=== PATIENT | female | born 1970 | race African-American/Black ===

== ENCOUNTER 2017-11-24 10:32 | Outpatient (CLI) | payer OTHER | END 2017-11-24 10:33 | disposition home or self-care (01) | LOC: BICMAMMO 10:32 | PROVIDERS: ATTEND Internal Medicine | DX: Z12.31 Encounter for screening mammogram for malignant neoplasm of breast (principal) | CPT/HCPCS: 77063; 77067 ==

== ENCOUNTER 2018-01-26 08:30 | Inpatient (IN) | payer OTHER ==
--- NOTE | 2018-02-02 10:49 | HP ---
HISTORY OF PRESENT ILLNESS: The patient is a 47-year-old female with a several year history of progr essive problems with her right hip without injury. She has had progressive pain despite rest, restri ction of activities, use of a variety of anti-inflammatory medications, weight loss and lifestyle adj ustments. She is having pain with day-to-day activities including walking, getting dressed and sleep ing. It is also interfering with attending to work. PAST MEDICAL HISTORY: The patient has history of hypertension, back pain and previous hysterectomy. She had possible wrote rectal bleeding for meloxicam. CURRENT MEDICATIONS: Include atenolol and tramadol. ALLERGIES: LISINOPRIL. FAMILY HISTORY/SOCIAL HISTORY/REVIEW OF SYSTEMS: Otherwise unremarkable. PHYSICAL EXAMINATION: GENERAL: Reveals a healthy heavyset female. HEENT: Unremarkable. NECK: Supple. CHEST: Clear. HEART: Regular rate and rhythm. ABDOMEN: Soft, nontender. PELVIC/RECTAL/BREAST: Exams are deferred. EXTREMITIES: Pertinent findings to the right hip. The right leg is 1 cm short. There is tenderness of the anterior hip. There is a right antalgic gait. There is decreased range of motion of the rig ht hip and groin pain with internal rotation of the hip. Neurovascular exam is intact. There are pa lpable distal pulses. X-RAY FINDINGS: X-rays of the right hip reveal severe DJD with no joint space remaining with progres alexsander from previous x-rays. IMPRESSION: 1. Degenerative arthritis, right hip. 2. History of hypertension. PLAN: Right total hip replacement. The nature of the surgery, length of recovery, and potential com plications such as infection, loss of motion, incomplete relief, neurovascular injury, thromboembolic phenomenon, leg length discrepancy, possible transfusion, and need for revision have been discussed in detail.
[2018-02-06] MEDS ORDERED: Sodium Chloride 0.9% 100 ML ONE (08:27)
[2018-02-06] MEDS ORDERED: CEFAZOLIN/Water 2 GM/20 ML SYRINGE ONE (08:27)
[2018-02-06] MEDS ORDERED: Vancomycin HCl 1.5 GM in Sodium Chloride 0.9% 250 ML 300 ML IVPB SCH ×2 (08:45→22:00)
[2018-02-06] MEDS ORDERED: Midazolam HCl 2 mg/2 ml Vial ONE ×2 (09:27→11:28)
[2018-02-06] MEDS ORDERED: Fentanyl 100 MCG/2 ML VIAL ONE ×3 (09:28→13:19)
[2018-02-06] MEDS ORDERED: diphenhydrAMINE 50 MG/ML VIAL IVP PRN (10:15)
[2018-02-06] MEDS ORDERED: Naloxone HCl 0.4 mg/ml Vial IV PRN (10:15)
[2018-02-06] MEDS ORDERED: Promethazine HCl 25 MG/ML VIAL IM PRN ×2 (10:15→13:59)
[2018-02-06] MEDS ORDERED: Bupivacaine 0.25% 10 ML VIAL EPIDURAL PRN (10:15)
[2018-02-06] MEDS ORDERED: Ondansetron HCl/PF 4 MG/2 ML Vial IVP PRN ×3 (10:15→15:43)
[2018-02-06] MEDS ORDERED: Zolpidem Tartrate 5 MG TAB PO PRN ×2 (10:15→15:43)
[2018-02-06] MEDS ORDERED: traMADol HCl 50 MG TAB PO PRN ×2 (10:15→15:43)
[2018-02-06] MEDS ORDERED: diphenhydrAMINE 50 MG/ML VIAL IM PRN (10:15)
[2018-02-06] MEDS ORDERED: fentaNYL Citrate/PF 1,250 MCG, Bupivacaine 25 ML in Sodium Chloride 0.9% 250 ML 200 ML EPIDURAL SCH (10:15)
[2018-02-06] MEDS ORDERED: Hydrocerin (Eucerin) Cream 120 gm Jar TOP PRN (10:15)
[2018-02-06] MEDS ORDERED: Naloxone HCl 0.4 mg/ml Vial IVP PRN (10:15)
[2018-02-06] MEDS ORDERED: Lidocaine 1% PF 5 ML VIAL ONE (10:43)
[2018-02-06] MEDS ORDERED: Ondansetron HCl/PF 4 MG/2 ML Vial ONE (10:43)
[2018-02-06] MEDS ORDERED: PROPOFOL 200 MG/20 ML VIAL ONE (10:43)
[2018-02-06] MEDS ORDERED: Succinylcholine Chloride 20 MG/ML 10 ml SYRINGE FS ONE (10:43)
[2018-02-06] MEDS ORDERED: PHENYLEPHRINE-NS 100 MCG/ML 10 ML SYRINGE ONE (10:43)
[2018-02-06] MEDS ORDERED: Tranexamic Acid 1,000 MG in Sodium Chloride 0.9% 100 ML IVPB SCH ×2 (13:45→15:43)
[2018-02-06] MEDS ORDERED: Promethazine HCl 25 MG/ML VIAL SLOW IVP PRN ×2 (13:59→15:43)
--- NOTE | 2018-02-06 14:17 | OP ---
DATE OF SURGERY: 02/06/2018 SURGEON: Víctor Clark M.D. AIR VALVE MECHANIC: Noelle Riojas PA-C ANESTHESIA: General plus epidural. PREOPERATIVE DIAGNOSIS: Degenerative arthritis, right hip. POSTOPERATIVE DIAGNOSIS: Degenerative arthritis, right hip. PROCEDURES PERFORMED: Right total hip replacement with uncemented [place] Trident 52 mm acetabular c omponent with 36 mm X3 polyethylene insert and uncemented [place] Accolade femoral stem size #2, 132 degree neck angle with a +5 mm Delta ceramic 36 mm femoral head. DESCRIPTION OF PROCEDURE: After satisfactory anesthesia was induced in supine position, sequential c ompression device was placed on the non-operative leg. The patient was then placed in lateral decubi tus position this position held with the hip position device. The patient's right hip was then prepp ed and draped in routine sterile fashion. The hip was approached through a lateral curvilinear incis ion centered over the greater trochanter and carried down to subcutaneous tissues. Bleeding points c ontrolled with Bovie cautery. IT band and gluteal fascia were split in line with the skin incision. Direct lateral approach to the hip joint was accomplished by dividing the anterior third of the glut eus medius minimus tendons with Bovie cautery and reflecting this as a single flap anteriorly and med ially along with the vastus lateralis. Anterior capsulectomy was performed. Hip dislocated anterior ly. There was marked degenerative arthritis of the hip with large of exposed bare bone. The femoral neck was osteotomized with an oscillating saw using a trial prosthesis as a guide. Acetabulum was e xposed and cleaned of all soft tissue and debris and then reamed in sequential manner with power ream ers down to bleeding subchondral bone. It was reamed to a total of 52 mm. It was felt that a 52 mm Trident outer shell could be placed in a press fit fashion. The permanent outer shell was hammered i n position. There was good fit and stability of the outer shell and the permanent X3 polyethylene li ner was then snapped into position. The proximal femur was exposed and opened with a box osteotome a nd then rasped in sequence to accept a #2 Accolade femoral rasp. Trial reduction with 132 degree nec k angle and the +5 mm neck length, 36 mm head gave appropriate size, fit, and stability. Hip was aga in dislocated, the trial components removed. The permanent femoral component was then hammered in po sition and the permanent +5 of millimeters neck length 36 mm ceramic head was then placed on the trun nion. The components appear to be stable. The hip was again reduced and found to be stable. The hi p was copiously irrigated with pulsatile lavage. The abductors were repaired with interrupted 2-0 Vi cryl. IT band closure of the gluteal fascia were closed with interrupted 2-0 Vicryl and a running #2 Quill. Subcutaneous tissues were closed with interrupted #2-0 Vicryl, and a running 0 Quill suture and the skin closed with running subcuticular 3-0 Monoderm and SurgiSeal skin adhesive. Sterile dres sing was applied. The patient turned to supine position and a sequential compression device applied to her operated leg. She was then awakened and taken to recovery room in stable condition. There we re no apparent intraoperative complications. The estimated blood loss was 350 mL.
--- NOTE | 2018-02-06 14:43 | RAD ---
RIGHT HIP 2 VIEWS: HISTORY: Arthritis. Hip replacement. FINDINGS: Total hip prosthesis is in place. No perihardware lucency. Soft tissue gas. IMPRESSION: Right hip prosthesis is good radiographic position. POS: OFF
[2018-02-06] MEDS ORDERED: diphenhydrAMINE 25 MG CAP PO PRN (15:43)
[2018-02-06] MEDS ORDERED: Fentanyl 100 MCG/2 ML VIAL SLOW IVP PRN ×2 (15:43)
[2018-02-06] MEDS ORDERED: HYDROcodone/Acetaminophen 10/325 mg Tablet PO PRN ×2 (15:43)
[2018-02-06] MEDS ORDERED: Acetaminophen 325 MG TAB PO PRN (15:43)
[2018-02-06] MEDS ORDERED: Ketorolac Tromethamine 30 MG/ML VIAL IVP SCH (16:00)
[2018-02-06] MEDS: Ketorolac Tromethamine 30 MG/ML VIAL IVP SCH ×4 (16:10→22:55)
[2018-02-06] MEDS: diphenhydrAMINE 25 MG CAP PO PRN ×2 (16:20→21:56)
[2018-02-06] MEDS: Sodium Chloride 0.9% 1,000 ML IV SCH ×2 (16:53→22:55)
[2018-02-06] MEDS: HYDROcodone/Acetaminophen 5/325 mg Tablet PO PRN (17:10)
[2018-02-06] MEDS: Aspirin 81 mg Enteric Coated Tablet PO SCH (21:07)
[2018-02-06] MEDS: Ferrous Gluconate 324 MG TAB PO SCH (21:07)
[2018-02-06] MEDS: CEFAZOLIN/Water 2 GM/20 ML SYRINGE SLOW IVP SCH (21:55)
[2018-02-07] MEDS: HYDROcodone/Acetaminophen 5/325 mg Tablet PO PRN ×5 (03:35→21:22)
[2018-02-07 04:37] LABS: Hemoglobin 11.2 g/dL (12.0-16.0); Mean Corpuscular HGB CONC 33.3 g/dL (32.0-36.0); Mean Corpuscular Volume 87.1 fl (81.0-99.0); Mean Platelet Volume 7.7 fL (7.4-10.4); Platelet Count 206 thou/uL (130-400); RBC Distribution Width 11.5 % (11.5-14.5); Red Blood Cell (RBC) Count 3.86 mill/uL (4.20-5.40); White Blood Cell (WBC) Count 5.1 thou/uL (4.8-10.8)
[2018-02-07] MEDS: CEFAZOLIN/Water 2 GM/20 ML SYRINGE SLOW IVP SCH (04:55)
[2018-02-07] MEDS: Ketorolac Tromethamine 30 MG/ML VIAL IVP SCH ×3 (04:55→18:08)
[2018-02-07] MEDS: Multivitamin W/ Minerals 1 TAB PO SCH (08:16)
[2018-02-07] MEDS: Ferrous Gluconate 324 MG TAB PO SCH ×2 (08:16→21:22)
[2018-02-07] MEDS: Senokot S 8.6-50 MG TAB PO SCH ×2 (08:17→21:22)
[2018-02-07] MEDS: Aspirin 81 mg Enteric Coated Tablet PO SCH ×2 (08:17→21:22)
[2018-02-07] MEDS: Atenolol 25 MG TAB PO SCH (08:18)
[2018-02-07] MEDS ORDERED: PHENTERMINE HCL 15 MG PO SCH (09:00)
[2018-02-07 11:12] VITALS: BMI 38.2
[2018-02-07] MEDS: Sodium Chloride 0.9% 1,000 ML IV SCH ×2 (11:29→23:32)
--- NOTE | 2018-02-07 13:11 | PRG ---
DATE OF SERVICE: 02/07/2018 SUBJECTIVE: Trina is a 47-year-old female who is postop day #1 of right press fit total hip arthropl asty. She did relatively well. She has complaints of discomfort in the right hip as expected. OBJECTIVE: VITAL SIGNS: Temperature 98.2, pulse 90-100, blood pressure 94/57, respiratory rate 18, O2 saturatio n on room air is 98%. GENERAL: She is alert and oriented to person, place, time, and situation. Grossly nonfocal. MUSCULOSKELETAL: Neurovascularly intact both lower extremities. LABORATORY DATA: Hemoglobin and hematocrit 11.2 and 33.6. ASSESSMENT: 1. A 47-year-old female postop day #1 right total hip arthroplasty. 2. Mild postoperative hemorrhagic anemia. PLAN: Continue current management, discharge probably tomorrow.
[2018-02-08] MEDS: Ketorolac Tromethamine 30 MG/ML VIAL IVP SCH ×2 (00:10→05:04)
[2018-02-08] MEDS: Sodium Chloride 0.9% 1,000 ML IV SCH ×2 (06:51→16:30)
[2018-02-08] MEDS: HYDROcodone/Acetaminophen 5/325 mg Tablet PO PRN ×2 (07:26→11:20)
[2018-02-08] MEDS: Senokot S 8.6-50 MG TAB PO SCH ×2 (07:26→21:17)
[2018-02-08] MEDS: Multivitamin W/ Minerals 1 TAB PO SCH (07:27)
[2018-02-08] MEDS: Ferrous Gluconate 324 MG TAB PO SCH ×2 (07:27→21:17)
[2018-02-08] MEDS: Aspirin 81 mg Enteric Coated Tablet PO SCH ×2 (07:27→21:17)
[2018-02-08] MEDS: Atenolol 25 MG TAB PO SCH (07:29)
[2018-02-08] MEDS: traMADol HCl 50 MG TAB PO PRN ×2 (09:49→18:08)
[2018-02-08] MEDS ORDERED: HYDROcodone/Acetaminophen 10/325 mg Tablet PO PRN (14:46)
[2018-02-08] MEDS: HYDROcodone/Acetaminophen 10/325 mg Tablet PO PRN ×2 (15:26→21:18)
[2018-02-09] MEDS: Sodium Chloride 0.9% 1,000 ML IV SCH (01:13)
[2018-02-09] MEDS: HYDROcodone/Acetaminophen 10/325 mg Tablet PO PRN ×3 (01:18→11:35)
[2018-02-09] MEDS: Aspirin 81 mg Enteric Coated Tablet PO SCH (08:03)
[2018-02-09] MEDS: Ferrous Gluconate 324 MG TAB PO SCH (08:03)
[2018-02-09] MEDS: Multivitamin W/ Minerals 1 TAB PO SCH (08:04)
[2018-02-09] MEDS: Senokot S 8.6-50 MG TAB PO SCH (08:04)
[2018-02-09] MEDS: Atenolol 25 MG TAB PO SCH (08:05)
[2018-02-09 11:18] VITALS: BP 117/75; TEMP 98.6
== END 2018-02-09 12:51 | disposition home or self-care (01) | DRG 470 ==
LOC: SURG A 02-06 07:43 → SJJU 02-06 14:50
PROVIDERS: ADMIT Orthopaedic Surgery; ATTEND Orthopaedic Surgery
PROC: 0SR904Z Replacement of Right Hip Joint with Ceramic on Polyethylene Synthetic Substitute, Open Approach (ICD-10-PCS; principal; 2018-02-06)
DX: M16.11 Unilateral primary osteoarthritis, right hip (principal); D62 Acute posthemorrhagic anemia; I10 Essential (primary) hypertension; Z90.710 Acquired absence of both cervix and uterus; Z88.8 Allergy status to other drugs, medicaments and biological substances; Z79.899 Other long term (current) drug therapy
CPT/HCPCS: 36415; 85027; G8978-GP-CM; G8979-GP-CJ; G8987-GO-CJ; G8988-GO-CI; J1885; J2001; J2250; J2405; J2704; J3010; J3370; J3490; J7050

== ENCOUNTER 2018-01-26 08:39 | Outpatient (CLI) | payer OTHER ==
[2018-01-26 09:54] LABS: Bilirubin Negative (Negative); Blood, Urine Negative (Negative); Clarity CLEAR (Clear); Glucose, Urine (Dipstick) Negative (Negative); Leukocyte Negative (Negative); Nitrite Negative (Negative); Protein, Urine (Dipstick) Negative (Neg-Trace); Specific Gravity, Urine 1.012 (1.002-1.036); Urobilinogen 0.2 mg/dL (0.2-1.0); pH, Urine 7.5 (5.0-9.0)
[2018-01-26 09:56] LABS: Bacteria/HPF Rare-Few HPF (None Seen); Hyaline Casts/LPF 0-3 HYALINE CAST LPF (0-3 Hyaline); Pathc Cast-AUWi Flag 0.14 (0-2.49); RBC/HPF 0-3 HPF (0-3); Squamous Epithelial 0-3 HPF (0-3); WBC/HPF 0-3 HPF (0-3)
== END 2018-01-26 08:40 | disposition home or self-care (01) ==
LOC: LABBT 08:39
PROVIDERS: ATTEND Orthopaedic Surgery
DX: Z01.818 Encounter for other preprocedural examination (principal); M16.11 Unilateral primary osteoarthritis, right hip
CPT/HCPCS: 81001; 87081; 93005; 93010

== ENCOUNTER 2018-02-02 11:12 | Outpatient (CLI) | payer OTHER ==
[2018-02-02 11:40] LABS: #Eosinphils 0.1 thou/uL (0.0-0.7); #Lymphocytes 1.3 thou/uL (1.20-3.40); #Monocytes 0.3 thou/uL (0.11-0.59); #Neutrophils 1.6 thou/uL (1.40-6.50); %Basophils 1.1 % (0.0-1.0); %Eosinophils 3.1 % (0.0-10.0); %Lymphocytes 40.4 % (21.0-51.0); %Monocytes 8.6 % (0.0-10.0); %Neutrophils 46.8 % (42.0-75.0); Hemoglobin 14.1 g/dL (12.0-16.0); Mean Corpuscular HGB CONC 34.5 g/dL (32.0-36.0); Mean Corpuscular Hemoglobin 29.7 pg (27.0-31.0); Mean Platelet Volume 7.3 fL (7.4-10.4); Platelet Count 259 thou/uL (130-400); RBC Distribution Width 11.4 % (11.5-14.5); Red Blood Cell (RBC) Count 4.76 mill/uL (4.20-5.40); White Blood Cell (WBC) Count 3.3 thou/uL (4.8-10.8)
[2018-02-02 11:45] LABS: INR-International Normal Ratio 0.9; Prothrombin Time 12.1 SEC (12.0-14.7)
[2018-02-02 12:20] LABS: Anion Gap 11 mmol/L (10-20); BUN (Urea Nitrogen) 10 mg/dL (7.0-18.7); Calc. Creatinine Clearance 0 mL/min (70-130); Calcium 9.6 mg/dL (7.8-10.44); Carbon Dioxide 29 mmol/L (22-29); Chloride 105 mmol/L (98-107); Estimated GFR-MDRD Greater than 90; Glucose 100 mg/dL (70-105); Potassium 4.1 mmol/L (3.5-5.1); Sodium 141 mmol/L (136-145)
== END 2018-02-02 11:13 | disposition home or self-care (01) ==
LOC: LABBT 11:12
PROVIDERS: ATTEND Orthopaedic Surgery
DX: Z01.818 Encounter for other preprocedural examination (principal); M16.11 Unilateral primary osteoarthritis, right hip
CPT/HCPCS: 80048; 85025; 85610; 86850; 86900; 86901

== ENCOUNTER 2018-11-27 08:19 | Outpatient (CLI) | payer OTHER ==
--- NOTE | 2018-11-27 09:31 | MMO ---
Bilateral MAMMO Bilat Screen [facility]. CLINICAL HISTORY: Patient is 48 years old and is seen for screening. The patient has no family history of breast cancer. The patient has no personal history of cancer. VIEWS: The views performed were: bilateral craniocaudal with tomosynthesis and bilateral mediolateral oblique with tomosynthesis. FILMS COMPARED: The present examination has been compared to prior imaging studies performed at [facility] on 11/24/2017, and at [facility] on 11/09/2013, 10/23/2014, 11/03/2015 and 11/03/2016. MAMMOGRAM FINDINGS: There are stable benign appearing calcifications seen in both breasts. There are no suspicious masses, suspicious calcifications, or new areas of architectural distortion. IMPRESSION: THERE IS NO MAMMOGRAPHIC EVIDENCE OF MALIGNANCY. A ROUTINE FOLLOW-UP MAMMOGRAM IN 1 YEAR IS RECOMMENDED. THE RESULTS OF THIS EXAM WERE SENT TO THE PATIENT. ACR BI-RADS Category 2 - Benign finding MAMMOGRAPHY NOTE: 1. A negative mammogram report should not delay a biopsy if a dominant of clinically suspicious mass is present. 2. Approximately 10% to 15% of breast cancers are not detected by mammography. 3. Adenosis and dense breasts may obscure an underlying neoplasm.
== END 2018-11-27 08:20 | disposition home or self-care (01) ==
LOC: BICMAMMO 08:19
PROVIDERS: ATTEND Internal Medicine
DX: Z12.31 Encounter for screening mammogram for malignant neoplasm of breast (principal)
CPT/HCPCS: 77063; 77067

== ENCOUNTER 2019-01-31 15:25 | Outpatient (CLI) | payer OTHER ==
--- NOTE | 2019-01-31 16:00 | RAD ---
EXAM: CHEST TWO VIEWS: 01/31/19 HISTORY: Shortness of breath. COMPARISON: 10/14/11. FINDINGS: Heart size is normal. The lungs are clear. No pneumonia, edema, pleural effusions or other acute proc ess. IMPRESSION: No acute intrathoracic disease. Stable from prior study. POS: [facility]
== END 2019-01-31 15:26 | disposition home or self-care (01) ==
LOC: BICRAD 15:25
PROVIDERS: ATTEND Internal Medicine
DX: R06.02 Shortness of breath (principal)
CPT/HCPCS: 71046; 82306; 85025

== ENCOUNTER 2019-03-20 05:46 | Day surgery (SDC) | payer OTHER ==
[2019-03-13 13:10] VITALS: BMI 41.6
[2019-03-20] MEDS ORDERED: Lidocaine 1% (PF) 30 ML VIAL ONE (07:00)
[2019-03-20] MEDS ORDERED: Nitroglycerin 100MG/250ML BOT 250 ML ONE (07:00)
[2019-03-20] MEDS ORDERED: Verapamil 5 MG/2 ML VIAL ONE (07:00)
[2019-03-20] MEDS ORDERED: Heparin 10,000 UNITS/1 ML VIAL ONE (07:00)
[2019-03-20 07:12] LABS: Cardiac Risk 3.6 (Less than 4.5)
[2019-03-20] MEDS ORDERED: Midazolam HCl 2 mg/2 ml Vial ONE (07:26)
[2019-03-20] MEDS ORDERED: Fentanyl 100 MCG/2 ML VIAL ONE (07:27)
[2019-03-20] MEDS ORDERED: Iopamidol 370 76% 100 ML VIAL ONE (09:28)
== END 2019-03-20 11:03 | disposition home or self-care (01) ==
LOC: CCL 05:46
PROVIDERS: ATTEND Internal Medicine Cardiovascular Disease
PROC: 4A023N7 Measurement of Cardiac Sampling and Pressure, Left Heart, Percutaneous Approach (ICD-10-PCS; principal; 2019-03-20)
PROC: B2111ZZ Fluoroscopy of Multiple Coronary Arteries using Low Osmolar Contrast (ICD-10-PCS; principal; 2019-03-20)
DX: R07.89 Other chest pain (principal); R06.00 Dyspnea, unspecified; I10 Essential (primary) hypertension; M19.90 Unspecified osteoarthritis, unspecified site; E66.9 Obesity, unspecified; Z68.41 Body mass index [BMI] 40.0-44.9, adult; Z88.8 Allergy status to other drugs, medicaments and biological substances; Z79.899 Other long term (current) drug therapy
CPT/HCPCS: 36415; 80061; 93458; 99152; C1769; J1644; J2001; J2250; J3010; Q9967

== ENCOUNTER 2019-06-07 14:07 | Outpatient (CLI) | payer OTHER ==
--- NOTE | 2019-06-07 14:55 | CT ---
EXAM: CTA of the chest HISTORY: Chest pain and shortness of breath COMPARISON: None TECHNIQUE: Multiple contiguous axial images were obtained a CTA of the chest with contrast per pulmon marco embolism protocol. 3-D oblique MIP reformats and direct coronal reformats were performed. FINDINGS: HEART: Normal in size without focal cardiac abnormality. PULMONARY ARTERIES: Normal in caliber without filling defects to suggest pulmonary emboli. MEDIASTINUM: No hilar or mediastinal lymphadenopathy. LUNGS: No focal infiltrates or masses. PLEURAL SPACE: No pleural effusion or pneumothorax. CHEST WALL SOFT TISSUES: Unremarkable VISUALIZED OSSEOUS STRUCTURES: Unremarkable VISUALIZED SUBDIAPHRAGMATIC STRUCTURES: Unremarkable IMPRESSION: No evidence of pulmonary thromboembolism
== END 2019-06-07 14:08 | disposition home or self-care (01) ==
LOC: CT 14:07
PROVIDERS: ATTEND Internal Medicine
DX: R07.89 Other chest pain (principal)
CPT/HCPCS: 36415; 71275; 85379

== ENCOUNTER 2020-02-07 07:48 | Outpatient (CLI) | payer OTHER ==
--- NOTE | 2020-02-07 08:40 | MMO ---
Bilateral MAMMO Bilat Screen [facility]. CLINICAL HISTORY: Patient is 49 years old and is seen for screening. The patient has no family history of breast cancer. The patient has no personal history of cancer. VIEWS: The views performed were: bilateral craniocaudal with tomosynthesis and bilateral mediolateral oblique with tomosynthesis. FILMS COMPARED: The present examination has been compared to prior imaging studies performed at [facility] on 11/24/2017 and 11/27/2018, and at [facility] on 11/03/2015 and 11/03/2016. This study has been interpreted with the assistance of computer-aided detection. MAMMOGRAM FINDINGS: There are stable benign appearing calcifications seen in both breasts. There are no suspicious masses, suspicious calcifications, or new areas of architectural distortion. IMPRESSION: THERE IS NO MAMMOGRAPHIC EVIDENCE OF MALIGNANCY. A ROUTINE FOLLOW-UP MAMMOGRAM IN 1 YEAR IS RECOMMENDED. THE RESULTS OF THIS EXAM WERE SENT TO THE PATIENT. ACR BI-RADS Category 2 - Benign finding MAMMOGRAPHY NOTE: 1. A negative mammogram report should not delay a biopsy if a dominant of clinically suspicious mass is present. 2. Approximately 10% to 15% of breast cancers are not detected by mammography. 3. Adenosis and dense breasts may obscure an underlying neoplasm. Reported by: ANTIONETTE CARRILLO MD Electonically Signed: [id number]
== END 2020-02-07 07:49 | disposition home or self-care (01) ==
LOC: BICMAMMO 07:48
PROVIDERS: ATTEND Internal Medicine
DX: Z12.31 Encounter for screening mammogram for malignant neoplasm of breast (principal)
CPT/HCPCS: 77063; 77067

== ENCOUNTER 2021-02-10 08:59 | Outpatient (CLI) | payer OTHER | END 2021-02-10 09:00 | disposition home or self-care (01) | LOC: BICMAMMO 08:59 | PROVIDERS: ATTEND Internal Medicine | DX: Z12.31 Encounter for screening mammogram for malignant neoplasm of breast (principal) | CPT/HCPCS: 77063; 77067 ==

== ENCOUNTER 2021-07-29 09:39 | Outpatient (CLI) | payer OTHER | END 2021-07-29 09:40 | disposition home or self-care (01) | LOC: BICRAD 09:39 | PROVIDERS: ATTEND Internal Medicine | DX: R07.9 Chest pain, unspecified (principal) | CPT/HCPCS: 71046 ==

== ENCOUNTER 2022-02-15 08:56 | Outpatient (CLI) | payer BC | END 2022-02-15 08:57 | disposition home or self-care (01) | LOC: BICMAMMO 08:56 | PROVIDERS: ATTEND Internal Medicine | DX: Z12.31 Encounter for screening mammogram for malignant neoplasm of breast (principal) | CPT/HCPCS: 77063; 77067 ==

== ENCOUNTER 2022-12-14 11:05 | Outpatient (CLI) | payer BC | END 2022-12-14 11:06 | disposition home or self-care (01) | LOC: RAD 11:05 | PROVIDERS: ATTEND Internal Medicine | DX: M54.50 Low back pain, unspecified (principal); M25.551 Pain in right hip; M47.816 Spondylosis without myelopathy or radiculopathy, lumbar region; Z98.890 Other specified postprocedural states | CPT/HCPCS: 72100 ==

== ENCOUNTER 2023-07-04 15:10 | Outpatient (CLI) | payer BC | END 2023-07-04 15:11 | disposition home or self-care (01) | LOC: RAD 15:10 | PROVIDERS: ATTEND Internal Medicine | DX: M25.552 Pain in left hip (principal); M16.12 Unilateral primary osteoarthritis, left hip ==

== ENCOUNTER 2023-12-27 07:04 | Observation (INO) | payer BC ==
[2023-12-22 12:05] VITALS: BMI 41.5
[2023-12-27] MEDS ORDERED: Sodium Chloride 0.9% 100 ML ONE ×2 (07:45→09:27)
[2023-12-27] MEDS ORDERED: Tranexamic Acid 1,000 MG/10 ML VIAL ONE (07:45)
[2023-12-27] MEDS ORDERED: Midazolam HCl 2 mg/2 ml Vial ONE (08:21)
[2023-12-27] MEDS ORDERED: fentaNYL 50 mcg/mL 1 mL Vial ONE ×3 (08:21→13:58)
[2023-12-27] MEDS ORDERED: Lidocaine 1.5% w/Epi 1:200K 30 ML VIAL (Epid Use) ONE (08:40)
[2023-12-27] MEDS ORDERED: Vancomycin (BATCH) 1.5 GM/300 ML BAG ONE (09:05)
[2023-12-27] MEDS ORDERED: Promethazine HCl 25 MG SUPP PR PRN (09:15)
[2023-12-27] MEDS ORDERED: Naloxone HCl 0.4 mg/ml Vial IV PRN (09:15)
[2023-12-27] MEDS ORDERED: diphenhydrAMINE 50 MG/ML VIAL IVP PRN (09:15)
[2023-12-27] MEDS ORDERED: diphenhydrAMINE 25 MG CAP PO PRN ×2 (09:15→11:58)
[2023-12-27] MEDS ORDERED: Naloxone HCl 0.4 mg/ml Vial IVP PRN (09:15)
[2023-12-27] MEDS ORDERED: Bupivacaine 0.25% 10 ML VIAL EPIDURAL PRN (09:15)
[2023-12-27] MEDS ORDERED: Ondansetron PF 4 MG/2 ML Vial IVP PRN (09:15)
[2023-12-27] MEDS ORDERED: Promethazine HCl 25 MG/ML VIAL IM PRN (09:15)
[2023-12-27] MEDS ORDERED: Moisturizing Cream (Eucerin) 113 GM JAR TOP PRN (09:15)
[2023-12-27] MEDS ORDERED: traMADol HCl 50 MG TAB PO PRN ×2 (09:15)
[2023-12-27] MEDS ORDERED: HYDROcodone/Acetaminophen 5/325 mg Tablet PO PRN (09:15)
[2023-12-27] MEDS ORDERED: Zolpidem Tartrate 5 MG TAB PO PRN ×2 (09:15→11:58)
[2023-12-27] MEDS ORDERED: diphenhydrAMINE 50 MG/ML VIAL IM PRN (09:15)
[2023-12-27] MEDS ORDERED: CEFAZOLIN 2 GM VIAL ONE (09:27)
[2023-12-27] MEDS ORDERED: Ondansetron PF 4 MG/2 ML Vial ONE (09:32)
[2023-12-27] MEDS ORDERED: Rocuronium Bromide 10 MG/ML (10ML VIAL) ONE (09:32)
[2023-12-27] MEDS ORDERED: fentaNYL PF 100 MCG/2 ML SYRINGE ONE ×2 (09:32→11:45)
[2023-12-27] MEDS ORDERED: PROPOFOL 20 ML ONE (09:32)
[2023-12-27] MEDS ORDERED: Lidocaine 1% PF 5 ML VIAL ONE (09:32)
[2023-12-27] MEDS ORDERED: Dexamethasone 20 MG/5 ML VIAL ONE (09:32)
[2023-12-27] MEDS ORDERED: ePHEDrine Sulfate 50 MG/10 ML VIAL ONE (10:24)
[2023-12-27] MEDS ORDERED: SUGAMMADEX SODIUM 200 MG/2 ML VIAL ONE (11:42)
[2023-12-27] MEDS ORDERED: Acetaminophen 325 MG TAB PO PRN (11:58)
[2023-12-27] MEDS: Ketorolac Tromethamine 30 MG (1 mL) VIAL IVP SCH (14:51)
[2023-12-27] MEDS: HYDROcodone/Acetaminophen 5/325 mg Tablet PO PRN (15:02)
[2023-12-27] MEDS: CEFAZOLIN 2 GM in Sodium Chloride 0.9% 100 ML IVPB SCH (17:26)
[2023-12-27] MEDS: Ferrous Gluconate 324 MG TAB PO SCH (21:17)
[2023-12-27] MEDS: Senokot S 8.6-50 MG TAB PO SCH (21:18)
[2023-12-27] MEDS: Atorvastatin Calcium 10 MG TAB PO SCH (21:18)
[2023-12-27] MEDS: Aspirin 81 mg Enteric Coated Tablet PO SCH (21:18)
[2023-12-27] MEDS: Sodium Chloride 0.9% 1,000 ML IV SCH (21:28)
[2023-12-28] MEDS: FENTANYL 500 MCG/10 ML VIAL 500 MCG, Bupivacaine 0.75% 10 ML in Sodium Chloride 0.9% 80 ML EPIDURAL SCH (05:20)
[2023-12-28 06:23] LABS: Hematocrit 33.9 % (36.0-47.0); Hemoglobin 11.3 g/dL (12.0-16.0); Mean Corpuscular HGB CONC 33.3 g/dL (32.0-36.0); Mean Corpuscular Volume 87.1 fL (78.0-98.0); Mean Platelet Volume 9.7 fL (7.4-10.4); Platelet Count 237 10x3/uL (130-400); RBC Distribution Width 12.7 % (11.5-14.5); Red Blood Cell (RBC) Count 3.89 mill/uL (4.20-5.40)
[2023-12-28] MEDS ORDERED: HYDROcodone/Acetaminophen 10/325 mg Tablet PO PRN (08:28)
[2023-12-28] MEDS ORDERED: Multivitamin W/ Minerals 1 TAB PO SCH (09:00)
[2023-12-28] MEDS: Multivit, Therapeutic 1 TAB PO SCH (09:24)
[2023-12-28] MEDS: Escitalopram Oxalate 10 mg Tablet PO SCH (09:25)
[2023-12-28] MEDS: Pantoprazole DR 40 MG TAB PO SCH (09:25)
[2023-12-28] MEDS: Atenolol 25 MG TAB PO SCH (09:26)
[2023-12-28] MEDS: HYDROcodone/Acetaminophen 10/325 mg Tablet PO PRN (09:28)
[2023-12-28 12:20] VITALS: BP 104/69; TEMP 98.4
== END 2023-12-28 16:20 | disposition home or self-care (01) ==
LOC: SDC 07:04 → SJJU 11:58
PROVIDERS: ADMIT Orthopaedic Surgery; ATTEND Orthopaedic Surgery
PROC: 0SRB0JZ Replacement of Left Hip Joint with Synthetic Substitute, Open Approach (ICD-10-PCS; principal; 2023-12-28)
PROC: 3E0T3GC Introduction of Other Therapeutic Substance into Peripheral Nerves and Plexi, Percutaneous Approach (ICD-10-PCS; 2023-12-28)
DX: M16.12 Unilateral primary osteoarthritis, left hip (principal); I10 Essential (primary) hypertension; E78.5 Hyperlipidemia, unspecified; Z90.710 Acquired absence of both cervix and uterus; Z90.49 Acquired absence of other specified parts of digestive tract; Z90.89 Acquired absence of other organs; Z87.19 Personal history of other diseases of the digestive system; Z79.899 Other long term (current) drug therapy; Z88.8 Allergy status to other drugs, medicaments and biological substances
CPT/HCPCS: 36415; 72170; 85027; C1776; J1100; J1885; J2001; J2250; J2405; J2704; J3010; J3370; J3490; J7050